=== PATIENT | male | born 1960 | race Caucasian/White ===

== ENCOUNTER → 2019-04-15 09:15 | Outpatient (CLI) | payer OTHER, SELFPAY ==
[2019-04-15 10:33] LABS: Add Manual Diff / Slide Review NO; Basophils Absolute Auto 0 /uL (0-100); Basophils Percent Auto 0.3 % (0-2); Eosinophils Absolute Auto 200 /uL (0-450); Eosinophils Percent Auto 2.5 % (2-4); Hemoglobin 16.1 g/dL (13.5-17.5); Lymphocytes Absolute Auto 1800 /uL (1100-4500); Lymphocytes Percent Auto 27.6 % (25-40); Mean Corpuscular HGB Conc 35.7 % (30-36); Mean Corpuscular Hemoglobin 32.1 PG (26-34); Monocytes Absolute Auto 500 /uL (0-900); Monocytes Percent Auto 7.4 % (3-14); Neutrophils Absolute Auto 4000 /uL (1500-7000); Neutrophils Percent Auto 62.2 % (50-75); Platelet Count 142 X10^3/uL (150-400); Red Cell Distribution Width 12.9 % (11.6-14.8); White Blood Cell Count 6.5 X10^3/uL (4.5-11.0)
[2019-04-15 10:37] LABS: Cholesterol 145 mg/dL (140-199)
[2019-04-15 11:57] LABS: Vitamin D 25 Hydroxy (D3) 37.4 ng/mL (30.0-100.0)
== END ==
PROVIDERS: PCP Family Medicine; Visit Provider Family Medicine
DX: Z12.5 Encounter for screening for malignant neoplasm of prostate (principal); I10 Essential (primary) hypertension; Z13.220 Encounter for screening for lipoid disorders; Z86.010 Personal history of colon polyps
CPT/HCPCS: 36415; 82306; 82465; 84153; 85025; 85027

== ENCOUNTER → 2020-04-29 08:29 | Outpatient (CLI) | payer OTHER, SELFPAY ==
[2020-04-29 09:52] LABS: Add Manual Diff / Slide Review NO; Basophils Absolute Auto 0 /uL (0-100); Basophils Percent Auto 0.3 % (0-2); Eosinophils Absolute Auto 100 /uL (0-450); Eosinophils Percent Auto 1.7 % (2-4); Hematocrit 44.4 % (41-53); Hemoglobin 15.4 g/dL (13.5-17.5); Lymphocytes Absolute Auto 1700 /uL (1100-4500); Lymphocytes Percent Auto 29.4 % (25-40); Mean Corpuscular HGB Conc 34.6 % (30-36); Mean Corpuscular Hemoglobin 31.5 PG (26-34); Monocytes Absolute Auto 500 /uL (0-900); Monocytes Percent Auto 8.5 % (3-14); Neutrophils Absolute Auto 3500 /uL (1500-7000); Neutrophils Percent Auto 60.1 % (50-75); Platelet Count 150 X10^3/uL (150-400); Red Blood Cell Count 4.88 X10^6/uL (4.5-5.9); Red Cell Distribution Width 13.3 % (11.6-14.8); White Blood Cell Count 5.9 X10^3/uL (4.5-11.0)
[2020-04-29 10:17] LABS: Blood Urea Nitrogen 20 mg/dL (9-20); Calcium 9.5 mg/dL (8.4-10.2); Carbon Dioxide 31 mmol/L (22-32); Chloride 104 mmol/L (98-107); Cholesterol 164 mg/dL (140-199); Estimated Glomerular Filt Rate 58.7 mL/min (>60); Glucose 95 mg/dL (80-110); HDL Cholesterol 37 mg/dL (40-60); HEMOLYSIS < 15 (0-50); LDL Cholesterol Calculated 69 mg/dL (<100); Sodium 138 mmol/L (137-145); Triglycerides 290 mg/dL (35-150)
== END ==
PROVIDERS: PCP Family Medicine; Referring Provider Family Medicine; Visit Provider Family Medicine
DX: E78.5 Hyperlipidemia, unspecified (principal); I10 Essential (primary) hypertension
CPT/HCPCS: 36415; 80048; 80061; 85025

== ENCOUNTER → 2020-07-27 07:49 | Outpatient (CLI) | payer OTHER, SELFPAY ==
[2020-07-27 09:41] LABS: Alanine Aminotransferase 44 IU/L (<50); Albumin 4.4 g/dL (3.5-5.0); Albumin Globulin Ratio 1.8 (1.0-2.8); Alkaline Phosphatase 53 U/L (38-126); Aspartate Aminotransferase 33 IU/L (17-59); BUN Creatinine Ratio 21.4 (6-22); Bilirubin Total 0.6 mg/dL (0.2-1.3); Blood Urea Nitrogen 25 mg/dL (9-20); Calcium 9.4 mg/dL (8.4-10.2); Carbon Dioxide 26 mmol/L (22-32); Chloride 106 mmol/L (98-107); Cholesterol 153 mg/dL (140-199); Estimated Glomerular Filt Rate > 60.0 mL/min (>60); Globulin 2.4 g/dL (1.7-4.1); Glucose 97 mg/dL (80-110); HDL Cholesterol 40 mg/dL (40-60); HEMOLYSIS < 15 (0-50); LDL Cholesterol Calculated 71 mg/dL (<100); Potassium 3.8 mmol/L (3.4-5.1); Sodium 140 mmol/L (137-145); Total Protein 6.8 g/dL (6.3-8.2); Triglycerides 208 mg/dL (35-150)
== END ==
PROVIDERS: PCP Family Medicine; Referring Provider Family Medicine; Visit Provider Family Medicine
DX: I10 Essential (primary) hypertension (principal); Z13.220 Encounter for screening for lipoid disorders
CPT/HCPCS: 36415; 80053; 80061

== ENCOUNTER → 2021-01-28 07:09 | Outpatient (CLI) | payer OTHER, SELFPAY ==
[2021-01-28 08:13] LABS: Add Manual Diff / Slide Review NO; Basophils Absolute Auto 0 /uL (0-100); Basophils Percent Auto 0.4 % (0-2); Eosinophils Absolute Auto 200 /uL (0-450); Eosinophils Percent Auto 3.9 % (2-4); Hematocrit 43.7 % (41-53); Lymphocytes Absolute Auto 1400 /uL (1100-4500); Lymphocytes Percent Auto 26.9 % (25-40); Mean Corpuscular HGB Conc 34.4 % (30-36); Mean Corpuscular Hemoglobin 31.2 PG (26-34); Mean Corpuscular Volume 90.8 fL (80-100); Monocytes Absolute Auto 400 /uL (0-900); Monocytes Percent Auto 7.5 % (3-14); Neutrophils Absolute Auto 3200 /uL (1500-7000); Neutrophils Percent Auto 61.3 % (50-75); Platelet Count 120 X10^3/uL (150-400); Red Blood Cell Count 4.82 X10^6/uL (4.5-5.9); Red Cell Distribution Width 12.8 % (11.6-14.8); White Blood Cell Count 5.3 X10^3/uL (4.5-11.0)
[2021-01-28 08:31] LABS: Alanine Aminotransferase 31 IU/L (<50); Albumin 4.1 g/dL (3.5-5.0); Albumin Globulin Ratio 1.6 (1.0-2.8); Alkaline Phosphatase 49 U/L (38-126); Aspartate Aminotransferase 32 IU/L (17-59); BUN Creatinine Ratio 17.4 (6-22); Bilirubin Total 0.5 mg/dL (0.2-1.3); Blood Urea Nitrogen 21 mg/dL (9-20); Calcium 9.4 mg/dL (8.4-10.2); Carbon Dioxide 30 mmol/L (22-32); Chloride 106 mmol/L (98-107); Cholesterol 154 mg/dL (140-199); Estimated Glomerular Filt Rate > 60.0 mL/min (>60); Globulin 2.5 g/dL (1.7-4.1); Glucose 94 mg/dL (80-110); HDL Cholesterol 39 mg/dL (40-60); HEMOLYSIS < 15 (0-50); LDL Cholesterol Calculated 63 mg/dL (<100); Potassium 4.1 mmol/L (3.4-5.1); Sodium 141 mmol/L (137-145); Total Protein 6.6 g/dL (6.3-8.2); Triglycerides 261 mg/dL (35-150)
[2021-01-28 08:54] LABS: Prostate Specific Antigen Scrn 1.32 ng/mL (0.1-4.0)
== END ==
PROVIDERS: PCP Family Medicine; Referring Provider Family Medicine; Visit Provider Family Medicine
DX: E78.1 Pure hyperglyceridemia (principal); I10 Essential (primary) hypertension; N18.31 Chronic kidney disease, stage 3a; Z12.5 Encounter for screening for malignant neoplasm of prostate; Z13.220 Encounter for screening for lipoid disorders
CPT/HCPCS: 36415; 80053; 80061; 85025; G0103

== ENCOUNTER → 2021-04-08 06:45 | Outpatient (CLI) | payer OTHER, SELFPAY ==
[2021-04-08 08:08] LABS: Cholesterol 172 mg/dL (140-199); HDL Cholesterol 43 mg/dL (40-60); LDL Cholesterol Calculated 96 mg/dL (<100); Triglycerides 163 mg/dL (35-150)
== END ==
PROVIDERS: PCP Family Medicine; Referring Provider Family Medicine; Visit Provider Family Medicine
DX: E78.1 Pure hyperglyceridemia (principal)
CPT/HCPCS: 36415; 80061

== ENCOUNTER 2023-11-22 14:24 | Inpatient (IN) | payer OTHER, SELFPAY ==
[2023-11-22] VITALS (80 sets, daily range): BP systolic 97–140; BP diastolic 62–91; PULSE 67–152; RESP 10–36; TEMP 36.9; O2SAT 91–100; BMI 27.2
--- NOTE | 2023-11-22 | DI.ECHO.S_ITS ---
[facility] : : [address] : : [place] : : [id number] : : Phone: [phone] Echocardiogram Report + + :Name: BOWEN HOBSON Study Date: 11/23/2023 Height: 70 in : :[facility] ReadingLocation: Weight: 190 lb : : Gender: Male BSA: 2.0 m2 : :: 1960 Age: 63 yrs BP: 145/88 mmHg: :Reason For Study: NEW ONSET ATRIAL FIBRILLATION : :Ordering Physician: MATHIEU, : :WILLY Performed By: Sheyla Pruett : :Referring: WILLY MURDOCK : + + Interpretation Summary The ejection fraction is estimated to be 60-65%. Diastolic parameters suggest probable normal left ventricular diastolic function and normal filling pressures. The right ventricle is normal in size and function. Pulmonary artery pressures cannot be estimated because of the lack of a measurable TR jet velocity. The IVC is of normal diameter and collapses greater than 50% with a sniff. This suggests a low right atrial pressure of 3 mm Hg. No significant valvular abnormality. Procedure: A two-dimensional transthoracic echocardiogram with color flow and Doppler was performed. The study quality was technically adequate. Comparison is made with the echocardiogram of 09/06/2010. The patient was in sinus rhythm with heart rates between 73-78 bpm during the exam. Left Ventricle: The left ventricle is normal in size and wall thickness. The ejection fraction is estimated to be 60-65%. Left ventricular wall motion is normal. Diastolic parameters suggest probable normal left ventricular diastolic function and normal filling pressures. Right Ventricle: The right ventricle is normal in size and function. Atria: The left atrial size is normal. Right atrial size is normal. There is no Doppler evidence for an interatrial shunt. Mitral Valve: The mitral valve is normal in structure and function. There is trace mitral regurgitation. Aortic Valve: The aortic valve is trileaflet. The aortic valve opens well. There is no aortic valve stenosis. No aortic regurgitation is present. Tricuspid Valve: The tricuspid valve is normal in structure and function. There is trace tricuspid regurgitation. Pulmonary artery pressures cannot be estimated because of the lack of a measurable TR jet velocity. Pulmonic Valve: The pulmonic valve leaflets are thin and pliable; valve motion is normal. There is trace pulmonic regurgitation. Great Vessels: The aortic root is normal size. The dimensions of the ascending aorta are normal. The IVC is of normal diameter and collapses greater than 50% with a sniff. This suggests a low right atrial pressure of 3 mm Hg. Pericardium/ Pleura There is no pericardial effusion. There is no pleural effusion. MMode/2D Measurements & Calculations LVIDd: 4.5 cm LVOT diam: 2.1 cm LVIDs: 2.8 cm Ao root diam: 3.3 cm FS: 38.0 % asc Aorta Diam: 3.6 cm IVSd: 0.87 cm Ao Arch Diam (Prox Trans): 3.0 cm LVPWd: 0.71 cm LV naidu. diameter/BSA (cm/m^2): 2.2 LV sys. diameter/BSA (cm/m^2): 1.4 LA A2 area: 15.1 cm2 RA long axis: 4.9 cm LA A4 area: 11.5 cm2 RA area: 11.9 cm2 LA length (vol): 5.0 cm RA vol: 24.5 ml LA vol: 29.4 ml RA : 12.0 ml/m2 LA vol index: 14.4 ml/m2 IVC diam: 1.7 cm RVD1 (basal): 3.4 cm TAPSE: 2.3 cm Doppler Measurements & Calculations Ao V2 max: 151.5 cm/sec LVOT Max Cisco: 108.4 cm/sec Ao V2 mean: 104.7 cm/sec LV V1 max P.7 mmHg Ao max P.2 mmHg LV V1 VTI: 21.1 cm Ao mean P.9 mmHg ANNALISA(I,D): 2.6 cm2 Ao V2 VTI: 29.3 cm ANNALISA(V,D): 2.6 cm2 sev ratio: 0.72 ANNALISA indexed to BSA (cm^2/m^2): 1.3 MV E max cisco: 58.2 cm/sec PA V2 max: 128.1 cm/sec MV A max cisco: 60.2 cm/sec PA V2 mean: 81.7 cm/sec MV E/A: 0.97 PA mean P.0 mmHg Med Peak E' Cisco: 7.6 cm/sec PA pr(Accel): 51.6 mmHg E/E' med: 7.7 Lat Peak E' Cisco: 10.0 cm/sec E/E' lat: 5.8 E/e' average: 6.8 MV dec time: 0.19 sec SV(LVOT): 76.3 ml Reading Physician:PM
--- NOTE | 2023-11-22 14:34 | EKG_ITS ---
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
--- NOTE | 2023-11-22 14:34 | DI.RAD.S_ITS ---
PROCEDURE: XR CHEST 1V INDICATIONS: chest pain TECHNIQUE: One view of the chest was acquired. COMPARISON: None. FINDINGS: Surgical changes and devices: None. Lungs and pleura: Lungs are clear. No pleural effusions or pneumothorax. Mediastinum: Mediastinal contours appear normal. Heart size is normal. Bones and chest wall: No suspicious bony lesions. Overlying soft tissues appear unremarkable. IMPRESSION: No acute pulmonary process. Dictated by: Yvette Fay M.D. on 11/22/2023 at 16:18 Approved by: Yvette Fay M.D. on 11/22/2023 at 16:18
--- NOTE | 2023-11-22 14:38 | EKG_ITS ---
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
[2023-11-22 14:48] LABS: INR 0.9 (0.9-1.3); Prothrombin Time 10.8 SECONDS (9.4-12.5)
[2023-11-22 14:50] LABS: PTT Partial Thromboplastin Tim 29 SECONDS (25.1-36.5)
[2023-11-22 14:53] LABS: Add Manual Diff / Slide Review NO; Alanine Aminotransferase 23 IU/L (<50); Albumin 4.4 g/dL (3.5-5.0); Albumin Globulin Ratio 1.6 (1.0-2.8); Alkaline Phosphatase 24 U/L (38-126); Aspartate Aminotransferase 47 IU/L (17-59); BUN Creatinine Ratio 20.9 (6-22); Basophils Absolute Auto 0 /uL (0-100); Basophils Percent Auto 0.1 % (0-2); Blood Urea Nitrogen 29 mg/dL (9-20); Calcium 8.5 mg/dL (8.4-10.2); Carbon Dioxide 17 mmol/L (22-32); Chloride 113 mmol/L (98-107); Creatine Kinase 169 U/L (55-170); Eosinophils Absolute Auto 0 /uL (0-450); Eosinophils Percent Auto 0.3 % (2-4); Estimated Glomerular Filt Rate 56 mL/min (>60); Globulin 2.7 g/dL (1.7-4.1); Glucose 142 mg/dL (80-110); Hematocrit 39.6 % (41-53); Hemoglobin 13.3 g/dL (13.5-17.5); Lipase 115 U/L (23-300); Lymphocytes Absolute Auto 700 /uL (1100-4500); Lymphocytes Percent Auto 6.9 % (25-40); Magnesium 1.9 mg/dL (1.6-2.3); Mean Corpuscular HGB Conc 33.6 % (30-36); Mean Corpuscular Hemoglobin 31.6 PG (26-34); Mean Corpuscular Volume 93.9 fL (80-100); Monocytes Absolute Auto 400 /uL (0-900); Neutrophils Absolute Auto 9100 /uL (1500-7000); Neutrophils Percent Auto 88.7 % (50-75); Platelet Count 116 X10^3/uL (150-400); Red Blood Cell Count 4.21 X10^6/uL (4.5-5.9); Red Cell Distribution Width 13.2 % (11.6-14.8); Sodium 139 mmol/L (137-145); Total Protein 7.1 g/dL (6.3-8.2); White Blood Cell Count 10.3 X10^3/uL (4.5-11.0)
[2023-11-22 14:59] LABS: HEMOLYSIS 177 (0-50); Potassium 5.4 mmol/L (3.4-5.1)
[2023-11-22 15:04] LABS: NT-proBNP (BNP-Adult 18+) 38 pg/mL (<125); Troponin I 0.016 ng/mL (0.01-0.034)
--- NOTE | 2023-11-22 15:27 | ED.ARRPALP ---
HPI - Arrhythmia/Palpitations General Chief Complaint: Arrhythmia/Palpitations Stated Complaint: vertigo/AFIB RVR Time Seen by Provider: 11/22/23 15:10 Source: patient and EMS Mode of arrival: EMS History of Present Illness HPI narrative: Patient 63-year-old male without history of atrial fibrillation presenting today with dizziness. He reports an episode of dizziness yesterday he would another episode today he was trying to get up and go to the office and got very dizzy. He denies all chest pain or palpitations no shortness breath. He got promethazine with EMS in his very sleepy. He has no numbness tingling or weakness. He denies any sort of fever or chills. No prior history of CVA. Related Data Home Medications Medication Instructions Recorded Confirmed aspirin 325 mg tablet 325 mg PO DAILY 04/13/19 01/29/21 omega 3 fish oil 1 ea PO DAILY 06/11/20 01/29/21 Previous Rx's Medication Instructions Recorded tadalafil 20 mg tablet See Rx Instructions .Route 04/25/20 .COMPLEX #18 tabs minocycline 50 mg tablet 50 mg PO DAILY #90 tabs 07/23/20 sulfasalazine 500 mg tablet See Rx Instructions .Route 12/18/20 .COMPLEX #360 tabs fenofibrate 40 mg tablet See Rx Instructions .Route 07/28/21 .COMPLEX #90 tabs rosuvastatin 10 mg tablet See Rx Instructions .Route 10/17/21 .COMPLEX #90 tabs mesalamine 1.2 gram tablet,delayed See Rx Instructions .Route 01/26/22 release .COMPLEX #180 tabs triamterene 37.5 See Rx Instructions .Route 02/27/22 mg-hydrochlorothiazide 25 mg tablet .COMPLEX #90 tabs Allergies Allergy/AdvReac Type Severity Reaction Status Date / Time No Known Drug Allergies Allergy Unverified 01/29/21 08:02 Patient History Medical History Hypertriglyceridemia without hypercholesterolemia Chronic kidney disease, stage 3a Chronic colitis Ear foreign body Vision disorder Rosacea (~2007) Chicken pox Tinnitus (~1999) History of recurrent ear infection Skin cancer (~2002) Erectile dysfunction History of colon polyps HTN (hypertension) (~2000) History of atrial fibrillation (~2009) Surgical History History of skin surgery Family History Father Diabetes mellitus Stroke History of heart disease Hypertension Mother History of heart disease Brother Mental health problem Brother Suicide Mental health problem Sister History of heart disease Sister Multiple sclerosis Sister History of heart disease Social History Smoking Status: Never smoker Smoking Status: Never smoker alcohol intake frequency: holidays/special occasions only Substance Use Type: does not use Exam Initial Vital Signs Initial Vital Signs: Vital Signs Pulse Rate 142 H 11/22/23 14:31 Respiratory Rate 14 11/22/23 14:31 Blood Pressure 139/91 H 11/22/23 14:31 Pulse Oximetry 100 11/22/23 14:31 Oxygen Delivery Method Room Air 11/22/23 14:31 GENERAL: Alert pleasant 63-year-old male sleepy but able to participate and in no acute distress. HEENT: Head atraumatic,EOMI, pupils reactive, face symmetric, moist mucous membranes CARDIOVASCULAR: Irregularly irregular RESPIRATORY: Breath sounds equal bilaterally, no wheezes rales or rhonchi. ABDOMEN: Soft, nontender. Normoactive bowel sounds all 4 quadrants. No guarding or rebound. EXTREMITIES: Normal range of motion, no clubbing or edema. Neurovascularly intact NEUROLOGICAL: Alert and oriented x4.Normal gait and speech. Cranial nerves II through XII grossly intact. SKIN: Warm, dry, no laceration, no petechiae, no rashes or lesions. Course Orders Ordered: ED Orders 11/22/23 14:34 XR chest 1V Stat BNP [NT-proBNP (BNP-Adult 18+)] Stat Complete Blood Count AUTO DIFF Stat Comprehensive Metabolic Panel Stat Lactate (Lactic Acid) Stat Lipase Stat Magnesium Stat NT-proBNP (BNP-Adult 18+) Stat PTT Partial Thromboplastin Micha Stat Prothrombin Time INR Stat Troponin & CK Cardiac Panel Stat EKG-12 Lead Stat 11/22/23 14:38 EKG-12 Lead Routine 11/22/23 15:45 CT angio head and neck Stat Acetaminophen (Acetaminophen 325 Mg Tablet) 650 mg PO Q6H PRN PRN Reason: Fever/Mild Pain (1-3) Albuterol (Albuterol 2.5 Mg/3 Ml Neb (Adult)) 2.5 mg INH [id number] PRN PRN Reason: Dyspnea Hydralazine HCl (Hydralazine 20 Mg/Ml Vial) 10 mg IV Q6HR PRN PRN Reason: SBP>= 160 or DBP >=110 DILTIAZEM (Diltiazem 125 Mg/125 Ml-D5w) 125 mg in 125 mls @ 5 mls/hr IV TITRATE TAMANNA; Protocol Last Titration: 11/22/23 20:01 Dose: 10 mg/hr, 10 mls/hr Documented By: Titration: 11/22/23 19:56 Dose: 7.5 mg/hr, 7.5 mls/hr Documented By: Admin: 11/22/23 19:33 Dose: 5 mg/hr, 5 mls/hr Documented By: AB Sodium Chloride (Normal Saline 0.9%) 1,000 mls @ 100 mls/hr IV CONT TAMANNA Melatonin (Melatonin 3 Mg Tablet) 9 mg PO BEDTIME PRN PRN Reason: insomnia Naloxone HCl (Naloxone 0.4 Mg/Ml Vial) 0.2 mg IV Q2MIN PRN PRN Reason: Opiate Reversal Non-Formulary Medication (Aspirin) 81 mg PO DAILY TAMANNA Non-Formulary Medication (Fenofibrate) 0 mg .ROUTE .COMPLEX TAMANNA Non-Formulary Medication (Mesalamine) 0 mg .ROUTE .COMPLEX TAMANNA Non-Formulary Medication (Rosuvastatin) 0 mg .ROUTE .COMPLEX TAMANNA Non-Formulary Medication (Sulfasalazine) 0 mg .ROUTE .COMPLEX TAMANNA Triamterene/Hydrochlorothiazide (Triamterene/Hctz 37.5/25 Capsule) 0 cap PO .COMPLEX TAMANNA Discontinued Medications Apixaban (Apixaban 5 Mg Tablet) 5 mg PO NOW ONE Stop: 11/22/23 17:59 Last Admin: 11/22/23 18:08 Dose: 5 mg Documented By: RB Digoxin (Digoxin 500 Mcg/2 Ml Ampul) 500 mcg IV NOW ONE Stop: 11/22/23 19:36 Last Admin: 11/22/23 19:52 Dose: 500 mcg Documented By: AB Diltiazem HCl (Diltiazem 25 Mg/5 Ml Sdv) 10 mg IV NOW ONE Stop: 11/22/23 15:46 Last Admin: 11/22/23 15:55 Dose: 10 mg Documented By: RB Diltiazem HCl (Diltiazem 25 Mg/5 Ml Sdv) 20 mg IV NOW ONE Stop: 11/22/23 16:54 Last Admin: 11/22/23 17:19 Dose: 20 mg Documented By: RB Sodium Chloride (Normal Saline 0.9%) 1,000 mls @ 1,000 mls/hr IV BOLUS ONE Stop: 11/22/23 16:44 Last Infusion: 11/22/23 17:15 Dose: Infused Documented By: Admin: 11/22/23 15:54 Dose: 1,000 mls/hr Documented By: RB Metoprolol Succinate (Metoprolol Er 25 Mg Tablet) 25 mg PO NOW ONE Stop: 11/22/23 17:59 Last Admin: 11/22/23 18:08 Dose: 25 mg Documented By: RB Vital Signs Vital signs: Vital Signs - 8 hr 11/22/23 14:31 11/22/23 14:51 11/22/23 14:55 Pulse Rate 142 H 122 H Respiratory Rate 14 10 L Blood Pressure 139/91 H 130/68 Pulse Oximetry 100 98 Oxygen Delivery Method Room Air 11/22/23 14:55 11/22/23 15:00 11/22/23 15:00 Pulse Rate 148 H 143 H Respiratory Rate 15 15 Blood Pressure 97/67 Pulse Oximetry 98 99 Oxygen Delivery Method 11/22/23 15:14 11/22/23 15:14 11/22/23 15:15 Pulse Rate 150 H Respiratory Rate 15 Blood Pressure 106/84 120/73 Pulse Oximetry 98 Oxygen Delivery Method 11/22/23 15:15 11/22/23 15:30 11/22/23 15:30 Pulse Rate 134 H 147 H Respiratory Rate 14 15 Blood Pressure 115/63 Pulse Oximetry 98 98 Oxygen Delivery Method 11/22/23 15:45 11/22/23 15:45 11/22/23 15:55 Pulse Rate 152 H 140 H Respiratory Rate 16 Blood Pressure 130/70 130/70 Pulse Oximetry 98 Oxygen Delivery Method 11/22/23 16:00 11/22/23 16:00 11/22/23 16:30 Pulse Rate 99 H 123 H Respiratory Rate 15 14 Blood Pressure 108/66 Pulse Oximetry 98 97 Oxygen Delivery Method 11/22/23 17:00 11/22/23 17:19 11/22/23 17:30 Pulse Rate 135 H 146 H 115 H Respiratory Rate 13 20 Blood Pressure 108/66 Pulse Oximetry 97 97 Oxygen Delivery Method 11/22/23 17:57 11/22/23 17:57 11/22/23 18:00 Pulse Rate 135 H Respiratory Rate 17 Blood Pressure 133/73 126/77 Pulse Oximetry 93 Oxygen Delivery Method 11/22/23 18:00 11/22/23 18:08 11/22/23 18:15 Pulse Rate 130 H 130 H Respiratory Rate 12 Blood Pressure 126/77 128/69 Pulse Oximetry 95 Oxygen Delivery Method 11/22/23 18:15 11/22/23 18:30 11/22/23 18:31 Pulse Rate 112 H 148 H Respiratory Rate 15 15 Blood Pressure 125/79 Pulse Oximetry 95 95 Oxygen Delivery Method 11/22/23 18:31 11/22/23 18:45 11/22/23 18:45 Pulse Rate 105 H 121 H Respiratory Rate 15 17 Blood Pressure 121/72 Pulse Oximetry 95 94 Oxygen Delivery Method 11/22/23 18:59 11/22/23 19:00 11/22/23 19:00 Pulse Rate 127 H 124 H Respiratory Rate 16 16 Blood Pressure 124/62 Pulse Oximetry 95 95 Oxygen Delivery Method 11/22/23 19:11 11/22/23 19:15 11/22/23 19:15 Pulse Rate 117 H 148 H Respiratory Rate 16 Blood Pressure 124/62 117/70 Pulse Oximetry 94 Oxygen Delivery Method 11/22/23 19:30 11/22/23 19:35 11/22/23 19:40 Pulse Rate 131 H 136 H 135 H Respiratory Rate 19 19 12 Blood Pressure Pulse Oximetry 96 96 96 Oxygen Delivery Method MDM - Arrhythmia/Palpitations Lab Data 11/22/23 14:34 11/22/23 14:34 Labs: Lab Results 11/22/23 11/22/23 Range/Units 14:34 14:34 WBC 10.3 (4.5-11.0) X10^3/uL RBC 4.21 L (4.5-5.9) X10^6/uL Hgb 13.3 L (13.5-17.5) g/dL Hct 39.6 L (41-53) % MCV 93.9 (80-100) fL MCH 31.6 (26-34) PG MCHC 33.6 (30-36) % RDW 13.2 (11.6-14.8) % Plt Count 116 L (150-400) X10^3/uL Neut % (Auto) 88.7 H (50-75) % Lymph % (Auto) 6.9 L (25-40) % [place] % (Auto) 4.0 (3-14) % Eos % (Auto) 0.3 L (2-4) % Baso % (Auto) 0.1 (0-2) % Neut # (Auto) 9100 H (7132-2771) /uL Lymph # (Auto) 700 L (4970-6422) /uL [place] # (Auto) 400 (0-900) /uL Eos # (Auto) 0 (0-450) /uL Baso # (Auto) 0 (0-100) /uL PT 10.8 (9.4-12.5) SECONDS INR 0.9 (0.9-1.3) APTT 29 (25.1-36.5) SECONDS Sodium 139 (137-145) mmol/L Potassium 5.4 H (3.4-5.1) mmol/L Chloride 113 H (98-107) mmol/L Carbon Dioxide 17 L (22-32) mmol/L BUN 29 H (9-20) mg/dL Creatinine 1.39 H (0.66-1.25) mg/dL Estimated GFR 56 L (>60) mL/min BUN/Creatinine Ratio 20.9 (6-22) Glucose 142 H (80-110) mg/dL Lactate 2.0 (0.7-2.1) mmol/L Calcium 8.5 (8.4-10.2) mg/dL Magnesium 1.9 (1.6-2.3) mg/dL Total Bilirubin 1.0 (0.2-1.3) mg/dL AST 47 (17-59) IU/L ALT 23 (<50) IU/L Alkaline Phosphatase 24 L (38-126) U/L Total Creatine Kinase 169 (55-170) U/L Troponin I 0.016 (0.01-0.034) ng/mL NT-Pro-B Natriuret Pep 38 37 (<125) pg/mL Total Protein 7.1 (6.3-8.2) g/dL Albumin 4.4 (3.5-5.0) g/dL Globulin 2.7 (1.7-4.1) g/dL Albumin/Globulin Ratio 1.6 (1.0-2.8) Lipase 115 (23-300) U/L Imaging Data Chest x-ray: Radiologist's Impresson: PROCEDURE: XR CHEST 1V INDICATIONS: chest pain TECHNIQUE: One view of the chest was acquired. COMPARISON: None. FINDINGS: Surgical changes and devices: None. Lungs and pleura: Lungs are clear. No pleural effusions or pneumothorax. Mediastinum: Mediastinal contours appear normal. Heart size is normal. Bones and chest wall: No suspicious bony lesions. Overlying soft tissues appear unremarkable. IMPRESSION: No acute pulmonary process. Dictated by: Yvette Fay M.D. on 11/22/2023 at 16:18 CTA - brain/neck: Radiologist's Impresson: PROCEDURE: CT ANGIO HEAD AND NECK INDICATIONS: dizzy new onset afib TECHNIQUE: After the administration of intravenous contrast, 1 mm thick sections acquired from the aortic arch through the [place]. 3-dimensional [id number]-ciujchlggv (MIP) and/or volume rendering reformats were acquired of the central intracranial vasculature and neck separately. For radiation dose reduction, the following was used: automated exposure control, adjustment of mA and/or kV according to patient size. COMPARISON: [facility], , XR CHEST 1V, 11/22/2023, 14:35. FINDINGS: Image quality: This examination is limited by involuntary motion artifact. Limited by bolus timing, with venous contamination. BRAIN: CSF spaces: Ventricles are normal in size and shape. Basal cisterns are patent. No extra-axial fluid collections. Brain: No significant abnormality of the brain can be seen. Skull and face: Calvarium and facial bones appear intact, without suspicious lesions. Orbits appear normal. Sinuses: Sinuses and mastoids are clear. HEAD CT ANGIOGRAPHY: Anterior circulation: Intracranial internal carotid arteries are normal in size and flow. The flow within the paired anterior cerebral arteries is normal and symmetric. The flow within the middle cerebral arteries is normal and symmetric. The anterior communicating artery is seen. No aneurysms are seen. Posterior circulation: Visualized portions of the vertebral arteries demonstrate normal caliber, and join to form a normal appearing basilar artery. Flow within the posterior cerebral arteries is normal and symmetric. No aneurysms are seen. NECK CT ANGIOGRAPHY: Carotid system: The great vessels demonstrate a conventional anatomy as they arise from the aortic arch. The origins of the common carotid arteries appear patent. The common carotid arteries demonstrate normal caliber and courses. The bifurcation regions are both widely patent. The internal carotid arteries demonstrate normal calibers and courses. Posterior circulation: The origins of the vertebral arteries both appear widely patent. The more superior extracranial portions of both vertebral arteries also demonstrate normal courses and calibers. They join to form a normal appearing basilar artery. Soft tissues: Visualized neck soft tissues demonstrate no suspicious abnormalities. Bones: No suspicious bony lesions. Visualized cervical spine appears normally aligned. Moderate cervical spine degenerative change can be seen. IMPRESSION: No significant intracranial arterial abnormality is seen. No significant abnormality is seen within the arteries of the neck. If there is strong clinical suspicion for an acute stroke, please consider a brain MRI for further evaluation, as it is more sensitive (assuming that there is no contraindication to MRI). Any quantitative measurements of stenosis were performed using NASCET criteria. Dictated by: Jett Flower M.D. on 11/22/2023 at 15:52 ECG Data Attestation: I personally reviewed and interpreted this ECG as follows: Prior ECG tracings: available for review Interpretation: Atrial fibrillation rate [address] changes Repeat EKG AFib rate 135 MDM Narrative Medical decision making narrative: Patient is 63-year-old male with remote history of AFib I actually looked back through his EKGs in 2010 he did have an episode of atrial fibrillation. But he never followed up with Cardiology stating he has never had any issue. He suddenly presents with some dizziness that started today. No neurologic deficits. He was given promethazine by EMS which made him extremely sleepy. He is noted to be in AFib with RVR he was given 2 doses of diltiazem and did slow him down a little bit but then his heart rate quickly increased again. He has a CHADS-VASc 2 score=2 I am not convinced that he is symptomatic from his atrial fibrillation. While in the ED does sleepy on promethazine he reports no symptoms. He has not dizzy lightheaded he has absolutely no chest pain or palpitations. Heart rate remains to be in the 150s. I do not believe him to be a candidate for cardioversion. Other concern is possible CVA with asymptomatic uncontrolled atrial fibrillation. However no new neurologic deficits he has no longer having vertigo. CT angio was done there is no evidence of large vessel occlusion. Blood work has been reviewed no anemia or leukocytosis platelets are 116 they were previously 120, sodium 139, potassium 5.4, chloride 113, bicarb 17 BUN 29, creatinine 1.39 glucose 142 lactate 2.0, bili 1.0, AST 47, ALT 23, alk-phos 24, CPK 169 troponin negative Imaging reviewed CT angio and chest x-ray no acute cardiopulmonary process Consults: 1930 Dr Tee, updated on patient's symptoms test results recommends talking to Cardiology Dr. Nava, on-call cardiology updated patient's symptoms test results agrees with not a candidate for cardioversion with remote history of atrial fibrillation probably been asymptomatic and has episodes. Recommends rate control and anticoagulation. Diltiazem so can do digoxin 0.5 mg IV. Patient is waking up he is hungry overall feeling a little bit better he continues to be in AFib with RVR heart rate is very variable. Diltiazem drip is started. Patient accepted upstairs Discharge Plan Departure Patient Disposition: Admitted As Inpatient Clinical Impression: Atrial fibrillation, new onset, Atrial fibrillation with rapid ventricular response Admit Date/Time: 11/22/23 19:40 Admit Provider: Darnell Tee
--- NOTE | 2023-11-22 15:45 | DI.CT.S_ITS ---
PROCEDURE: CT ANGIO HEAD AND NECK INDICATIONS: dizzy new onset afib TECHNIQUE: After the administration of intravenous contrast, 1 mm thick sections acquired from the aortic arch through the [place]. 3-dimensional [id number] (MIP) and/or volume rendering reformats were acquired of the central intracranial vasculature and neck separately. For radiation dose reduction, the following was used: automated exposure control, adjustment of mA and/or kV according to patient size. COMPARISON: [facility], CR, XR CHEST 1V, 11/22/2023, 14:35. FINDINGS: Image quality: This examination is limited by involuntary motion artifact. Limited by bolus timing, with venous contamination. BRAIN: CSF spaces: Ventricles are normal in size and shape. Basal cisterns are patent. No extra-axial fluid collections. Brain: No significant abnormality of the brain can be seen. Skull and face: Calvarium and facial bones appear intact, without suspicious lesions. Orbits appear normal. Sinuses: Sinuses and mastoids are clear. HEAD CT ANGIOGRAPHY: Anterior circulation: Intracranial internal carotid arteries are normal in size and flow. The flow within the paired anterior cerebral arteries is normal and symmetric. The flow within the middle cerebral arteries is normal and symmetric. The anterior communicating artery is seen. No aneurysms are seen. Posterior circulation: Visualized portions of the vertebral arteries demonstrate normal caliber, and join to form a normal appearing basilar artery. Flow within the posterior cerebral arteries is normal and symmetric. No aneurysms are seen. NECK CT ANGIOGRAPHY: Carotid system: The great vessels demonstrate a conventional anatomy as they arise from the aortic arch. The origins of the common carotid arteries appear patent. The common carotid arteries demonstrate normal caliber and courses. The bifurcation regions are both widely patent. The internal carotid arteries demonstrate normal calibers and courses. Posterior circulation: The origins of the vertebral arteries both appear widely patent. The more superior extracranial portions of both vertebral arteries also demonstrate normal courses and calibers. They join to form a normal appearing basilar artery. Soft tissues: Visualized neck soft tissues demonstrate no suspicious abnormalities. Bones: No suspicious bony lesions. Visualized cervical spine appears normally aligned. Moderate cervical spine degenerative change can be seen. IMPRESSION: No significant intracranial arterial abnormality is seen. No significant abnormality is seen within the arteries of the neck. If there is strong clinical suspicion for an acute stroke, please consider a brain MRI for further evaluation, as it is more sensitive (assuming that there is no contraindication to MRI). Any quantitative measurements of stenosis were performed using NASCET criteria. Dictated by: Jett Flower M.D. on 11/22/2023 at 15:52 Approved by: Jett Flower M.D. on 11/22/2023 at 15:54
[2023-11-22] MEDS: SODIUM CHLORIDE 0.9% 1,000 ML 1000 ML IV (15:54)
[2023-11-22] MEDS: dilTIAZem 25 MG/5 ML SDV 10 MG IV (15:55)
[2023-11-22 16:35] LABS: NT-proBNP (BNP-Adult 18+) 37 pg/mL (<125)
[2023-11-22] MEDS: dilTIAZem 25 MG/5 ML SDV 20 MG IV (17:19)
[2023-11-22] MEDS: APIXABAN 5 MG TABLET PO (18:08)
[2023-11-22] MEDS: METOPROLOL ER 25 MG TABLET PO (18:08)
[2023-11-22] MEDS: DILTIAZEM 125 MG/125 ML PIGGYBACK IV (19:33)
[2023-11-22] MEDS: DIGOXIN 500 MCG/2 ML AMPUL IV (19:52)
[2023-11-22] MEDS: ATORVASTATIN 20 MG TABLET PO (22:12)
[2023-11-22] MEDS: TRIAMTERENE/HCTZ 37.5/25 CAPSULE PO (22:12)
[2023-11-22] MEDS: SODIUM CHLORIDE 0.9% 1,000 ML 100 ML IV (22:13)
--- NOTE | 2023-11-22 22:20 | P.HP_ITS ---
History of Present Illness History of Present Illness Chief complaint: vertigo Narrative: 63 years old male with history of hypertension, hyperlipidemia, remote history of atrial fibrillation in 2009, CKD, chronic colitis presented to the ER with dizziness since this morning. The patient tried vertigo medication but it did not help him. Denies any chest pain, palpitations, nausea, vomiting, abdominal pain, diarrhea, dysuria, neurodeficits, headache or blurry vision. In the ER laboratory showed BNP 690, potassium 5.4, creatinine 139, glucose 143, LFT normal, lipase 115. EKG showed atrial fibrillation with a rate of 129. CT angiogram of the head was unremarkable. The patient was started on Cardizem drip, Eliquis. Cardiology was consulted and recommended adding digoxin IV. [facility] Medical History Hypertriglyceridemia without hypercholesterolemia Chronic kidney disease, stage 3a Chronic colitis Ear foreign body Vision disorder Rosacea (~2007) Chicken pox Tinnitus (~1999) History of recurrent ear infection Skin cancer (~2002) Erectile dysfunction History of colon polyps HTN (hypertension) (~2000) History of atrial fibrillation (~2009) Surgical History History of skin surgery Family History Father Diabetes mellitus Stroke History of heart disease Hypertension Mother History of heart disease Brother Mental health problem Brother Suicide Mental health problem Sister History of heart disease Sister Multiple sclerosis Sister History of heart disease Social History household members: spouse Smoking Status: Never smoker alcohol intake: current Meds Home Medications and Allergies Home Medications Medication Instructions Recorded Confirmed Type aspirin 325 mg tablet 325 mg PO DAILY 04/13/19 11/22/23 History tadalafil 20 mg tablet See Rx Instructions .Route 04/25/20 11/22/23 Rx .COMPLEX #18 tabs minocycline 50 mg tablet 50 mg PO DAILY #90 tabs 07/23/20 11/22/23 Rx sulfasalazine 500 mg tablet See Rx Instructions .Route 12/18/20 11/22/23 Rx .COMPLEX #360 tabs fenofibrate 40 mg tablet See Rx Instructions .Route 07/28/21 11/22/23 Rx .COMPLEX #90 tabs rosuvastatin 10 mg tablet See Rx Instructions .Route 10/17/21 11/22/23 Rx .COMPLEX #90 tabs lisinopril 20 mg tablet 20 mg PO DAILY 11/22/23 11/22/23 History Allergies Allergy/AdvReac Type Severity Reaction Status Date / Time No Known Drug Allergies Allergy Unverified 01/29/21 08:02 Review of Systems Review of Systems ROS: Yes All systems reviewed with the patient and are negative except as otherwise documented Constitutional Constitutional: Reports as per HPI and Reports system reviewed and no additional complaints, except as documented Eyes Eyes: Reports as per HPI and Reports system reviewed and no additional complaints, except as documented ENT Ears, Nose, Mouth, and Throat: Yes as per HPI and Yes system reviewed and no additional complaints, except as documented Cardiovascular Cardiovascular: Reports system reviewed and no additional complaints, except as documented Respiratory Respiratory: Reports system reviewed and no additional complaints, except as documented Gastrointestinal Gastrointestinal: Reports system reviewed and no additional complaints, except as documented Genitourinary Genitourinary: Reports system reviewed and no additional complaints, except as documented Musculoskeletal Musculoskeletal: Reports system reviewed and no additional complaints, except as documented, Reports abnormal gait and Reports numbness Neurologic Neurologic: Reports system reviewed and no additional complaints, except as documented, Reports abnormal gait, Reports confusion and Reports numbness Psychiatric Psychiatric: Reports system reviewed and no additional complaints, except as documented and Reports confusion Exam Vital Signs (past 8 hours): - 11/22/23 14:31 11/22/23 14:51 11/22/23 14:55 Pulse Rate 142 H 122 H Respiratory Rate 14 10 L Blood Pressure 139/91 H 130/68 Pulse Oximetry 100 98 Oxygen Delivery Method Room Air 11/22/23 14:55 11/22/23 15:00 11/22/23 15:00 Pulse Rate 148 H 143 H Respiratory Rate 15 15 Blood Pressure 97/67 Pulse Oximetry 98 99 Oxygen Delivery Method 11/22/23 15:14 11/22/23 15:14 11/22/23 15:15 Pulse Rate 150 H Respiratory Rate 15 Blood Pressure 106/84 120/73 Pulse Oximetry 98 Oxygen Delivery Method 11/22/23 15:15 11/22/23 15:30 11/22/23 15:30 Pulse Rate 134 H 147 H Respiratory Rate 14 15 Blood Pressure 115/63 Pulse Oximetry 98 98 Oxygen Delivery Method 11/22/23 15:45 11/22/23 15:45 11/22/23 15:55 Pulse Rate 152 H 140 H Respiratory Rate 16 Blood Pressure 130/70 130/70 Pulse Oximetry 98 Oxygen Delivery Method 11/22/23 16:00 11/22/23 16:00 11/22/23 16:30 Pulse Rate 99 H 123 H Respiratory Rate 15 14 Blood Pressure 108/66 Pulse Oximetry 98 97 Oxygen Delivery Method 11/22/23 17:00 11/22/23 17:19 11/22/23 17:30 Pulse Rate 135 H 146 H 115 H Respiratory Rate 13 20 Blood Pressure 108/66 Pulse Oximetry 97 97 Oxygen Delivery Method 11/22/23 17:57 11/22/23 17:57 11/22/23 18:00 Pulse Rate 135 H Respiratory Rate 17 Blood Pressure 133/73 126/77 Pulse Oximetry 93 Oxygen Delivery Method 11/22/23 18:00 11/22/23 18:08 11/22/23 18:15 Pulse Rate 130 H 130 H Respiratory Rate 12 Blood Pressure 126/77 128/69 Pulse Oximetry 95 Oxygen Delivery Method 11/22/23 18:15 11/22/23 18:30 11/22/23 18:31 Pulse Rate 112 H 148 H Respiratory Rate 15 15 Blood Pressure 125/79 Pulse Oximetry 95 95 Oxygen Delivery Method 11/22/23 18:31 11/22/23 18:45 11/22/23 18:45 Pulse Rate 105 H 121 H Respiratory Rate 15 17 Blood Pressure 121/72 Pulse Oximetry 95 94 Oxygen Delivery Method 11/22/23 18:59 11/22/23 19:00 11/22/23 19:00 Pulse Rate 127 H 124 H Respiratory Rate 16 16 Blood Pressure 124/62 Pulse Oximetry 95 95 Oxygen Delivery Method 11/22/23 19:11 11/22/23 19:15 11/22/23 19:15 Pulse Rate 117 H 148 H Respiratory Rate 16 Blood Pressure 124/62 117/70 Pulse Oximetry 94 Oxygen Delivery Method 11/22/23 19:30 11/22/23 19:35 11/22/23 19:40 Pulse Rate 131 H 136 H 135 H Respiratory Rate 19 19 12 Blood Pressure Pulse Oximetry 96 96 96 Oxygen Delivery Method 11/22/23 19:45 11/22/23 19:50 11/22/23 19:52 Pulse Rate 146 H 139 H Respiratory Rate 28 H 26 H Blood Pressure 117/70 Pulse Oximetry 92 Oxygen Delivery Method 11/22/23 19:55 11/22/23 20:00 11/22/23 20:05 Pulse Rate 131 H 132 H 118 H Respiratory Rate 28 H 25 H 23 Blood Pressure Pulse Oximetry 98 97 98 Oxygen Delivery Method 11/22/23 20:10 11/22/23 20:15 11/22/23 20:20 Pulse Rate 128 H 113 H 109 H Respiratory Rate 25 H 21 22 Blood Pressure Pulse Oximetry 98 98 97 Oxygen Delivery Method Room Air 11/22/23 20:24 11/22/23 20:24 11/22/23 20:25 Pulse Rate 107 H 100 H Respiratory Rate 27 H 22 Blood Pressure 140/74 Pulse Oximetry 96 96 Oxygen Delivery Method 11/22/23 20:30 11/22/23 20:30 11/22/23 20:35 Pulse Rate 90 110 H Respiratory Rate 25 H 22 Blood Pressure 123/81 Pulse Oximetry 97 96 Oxygen Delivery Method 11/22/23 20:40 11/22/23 21:00 Pulse Rate 124 H Respiratory Rate 36 H Blood Pressure Pulse Oximetry Oxygen Delivery Method Room Air Oxygen Delivery Method Room Air Const General: cooperative, comfortable and well developed Orientation: alert and oriented x3 HENMT Head: normal to inspection, normocephalic and atraumatic Face and sinus: normal facial exam Mouth: oral mucosae normal and moist mucous membranes Throat: posterior oropharynx normal Eyes General: appearance normal, both eyes and all related structures Pupils: PERRL EOM: EOM intact bilaterally Neck Neck: normal visual inspection and full ROM Chest Chest: normal inspection of the chest Resp Effort & Inspection: normal respiratory effort and able to speak in complete sentences Auscultation: clear to auscultation bilaterally Cardio Palpation: normal PMI Rate: regular rate Rhythm: regular rhythm Heart Sounds: S1 normal and S2 normal GI Inspection: normal to inspection Palpation: soft and no hepatosplenomegaly Auscultation: normal bowel sounds Skin General: no rashes or lesions noted Lesions: no lesions Rashes: no rashes Trauma: no lacerations or abrasions Neuro General: patient alert, patient awake, patient oriented x3 and no focal motor deficits Cranial Nerves: CN's II-XI intact bilaterally Cognition: normal cognition Speech: speech normal Gait: normal gait Motor: muscle tone normal throughout Sensory Exam: no sensory deficits noted Extrem General: full ROM and no calf tenderness Psych Appearance: grossly normal Mental Status: mental status grossly normal Speech and Movement: speech and movement normal Objective Labs 11/22/23 14:34 11/22/23 14:34 Labs: Laboratory Results - last 24 hr 11/22/23 11/22/23 14:34 14:34 WBC 10.3 RBC 4.21 L Hgb 13.3 L Hct 39.6 L MCV 93.9 MCH 31.6 MCHC 33.6 RDW 13.2 Plt Count 116 L Neut % (Auto) 88.7 H Lymph % (Auto) 6.9 L [place] % (Auto) 4.0 Eos % (Auto) 0.3 L Baso % (Auto) 0.1 Neut # (Auto) 9100 H Lymph # (Auto) 700 L [place] # (Auto) 400 Eos # (Auto) 0 Baso # (Auto) 0 PT 10.8 INR 0.9 APTT 29 Sodium 139 Potassium 5.4 H Chloride 113 H Carbon Dioxide 17 L BUN 29 H Creatinine 1.39 H Estimated GFR 56 L BUN/Creatinine Ratio 20.9 Glucose 142 H Lactate 2.0 Calcium 8.5 Magnesium 1.9 Total Bilirubin 1.0 AST 47 ALT 23 Alkaline Phosphatase 24 L Total Creatine Kinase 169 Troponin I 0.016 NT-Pro-B Natriuret Pep 38 37 Total Protein 7.1 Albumin 4.4 Globulin 2.7 Albumin/Globulin Ratio 1.6 Lipase 115 Assessment & Plan Assessment & Plan narrative: A. Fib with RVR. Patient has history of previous atrial fibrillation per patient documentation. -Admitted patient in PCU -if rate control is achieved will start on scheduled metoprolol -start diltiazem drip. Closely monitor blood pressure and heart rate. Hold if the systolic blood pressures < 90 or heart rate is < 60. --if the patient doesn't respond to Cardizem/digoxin will consider intravenously amiodarone -Monitor patient's electrolyte closely. Keep K > 4, Mg > 2 -Check patient's cardiac enzymes,TSH restart rosuvastatin levels -Check echocardiogram -Continue with Eliquis started from the ED. -consider cardiology consult in the morning Hyperlipidemia. Restart fenofibrate and rosuvastatin CAD. Restart aspirin, statins Hypertension. Restart lisinopril Chronic colitis. Restart sulfasalazine Time-Based Coding :: [TOTAL MINUTES] spent with patient and on the chart (including review of chart, obtaining history, exam, reviewing outside data, placing orders, documenting exam and treatment plan, and counseling patient) on [DATE]. Quality VTE Deep Vein Thrombosis/Pulmonary Embolism Present on Admission: No MIPS - Admit I confirm the patient?s Advance Care Plan is present, Code status is documented, Surrogate decision maker is in patient?s record [If Yes, STOP here]: Yes MIPS - Meds 'Current medications' to include all prescriptions, [id number] products, herbals, cannabis/cannabidiol products, and vitamin/mineral/dietary (nutritional) supplements. I have utilized all available resources to obtain, update, or review the patient?s current medications. [If Yes, STOP here]: Yes
[2023-11-22 22:37] LABS: Thyroid Stimulating Hormone 1.43 uIU/mL (0.47-4.68)
[2023-11-23] VITALS (24 sets, daily range): BP systolic 101–145; BP diastolic 60–88; PULSE 65–99; RESP 12–21; TEMP 36.2–36.5; O2SAT 91–99
[2023-11-23 06:26] LABS: Alanine Aminotransferase 19 IU/L (<50); Albumin 3.4 g/dL (3.5-5.0); Albumin Globulin Ratio 1.4 (1.0-2.8); Alkaline Phosphatase 35 U/L (38-126); Aspartate Aminotransferase 25 IU/L (17-59); BUN Creatinine Ratio 18.9 (6-22); Bilirubin Total 0.4 mg/dL (0.2-1.3); Blood Urea Nitrogen 25 mg/dL (9-20); Carbon Dioxide 21 mmol/L (22-32); Chloride 115 mmol/L (98-107); Estimated Glomerular Filt Rate 60 mL/min (>60); Globulin 2.4 g/dL (1.7-4.1); Glucose 99 mg/dL (80-110); HEMOLYSIS < 15 (0-50); Potassium 4.3 mmol/L (3.4-5.1); Sodium 140 mmol/L (137-145); Total Protein 5.8 g/dL (6.3-8.2)
[2023-11-23 07:02] LABS: Troponin I 0.418 ng/mL (0.01-0.034)
[2023-11-23] MEDS: SODIUM CHLORIDE 0.9% 1,000 ML 100 ML IV (07:23)
--- NOTE | 2023-11-23 07:24 | EKG_ITS ---
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
--- NOTE | 2023-11-23 07:28 | PC.NURSE ---
pt admitted to ICU at 2058, awake and alert, in a-fib w/ HR 120s-140s; Diltiazem 15mg/hr; pt denies chest pain or shortness of breath; denies dizziness on arrival to ICU; Diltiazem was titrated down to 5mg/hr for HR 60-80s, and pt converted to NSR at 0538; troponin this am 0.[address] Ramirez notified; EKG being done and pt continues to deny SOB, CP, or dizziness
[2023-11-23] MEDS: DILTIAZEM 125 MG/125 ML PIGGYBACK IV (07:38)
--- NOTE | 2023-11-23 08:00 | P.PN_ITS ---
Subjective Subjective Interval history: From night doctor: 63 years old male with history of hypertension, hyperlipidemia, remote history of atrial fibrillation in 2009, CKD, chronic colitis presented to the ER with dizziness since this morning. The patient tried vertigo medication but it did not help him. Denies any chest pain, palpitations, nausea, vomiting, abdominal pain, diarrhea, dysuria, neurodeficits, headache or blurry vision. In the ER laboratory showed BNP 690, potassium 5.4, creatinine 1.39, glucose 143, LFT normal, lipase 115. EKG showed atrial fibrillation with a rate of 129. CT angiogram of the head was unremarkable. The patient was started on Cardizem drip, Eliquis. Cardiology was consulted and recommended adding digoxin IV. Exam Vital Signs (past 8 hours): - 11/23/23 00:05 11/23/23 00:10 11/23/23 00:15 Temperature Pulse Rate 73 74 80 Respiratory Rate 16 17 17 Blood Pressure Pulse Oximetry 94 94 94 Oxygen Flow Rate 11/23/23 00:20 11/23/23 00:25 11/23/23 00:30 Temperature Pulse Rate 69 70 72 Respiratory Rate 16 18 18 Blood Pressure Pulse Oximetry 94 94 94 Oxygen Flow Rate 11/23/23 00:35 11/23/23 00:40 11/23/23 00:45 Temperature Pulse Rate 75 69 74 Respiratory Rate 19 15 17 Blood Pressure Pulse Oximetry 94 96 95 Oxygen Flow Rate 11/23/23 00:50 11/23/23 00:55 11/23/23 01:00 Temperature Pulse Rate 70 68 Respiratory Rate 17 16 Blood Pressure 108/62 Pulse Oximetry 94 94 Oxygen Flow Rate 11/23/23 01:00 11/23/23 02:00 11/23/23 02:00 Temperature Pulse Rate 71 65 Respiratory Rate 17 17 Blood Pressure 101/60 Pulse Oximetry 94 94 Oxygen Flow Rate 11/23/23 03:00 11/23/23 03:00 11/23/23 04:00 Temperature Pulse Rate 74 Respiratory Rate 12 Blood Pressure 114/65 109/64 Pulse Oximetry 95 Oxygen Flow Rate 11/23/23 04:00 11/23/23 05:00 11/23/23 05:00 Temperature Pulse Rate 75 99 H Respiratory Rate 15 21 Blood Pressure 116/78 Pulse Oximetry 95 91 Oxygen Flow Rate 11/23/23 06:00 11/23/23 06:00 11/23/23 06:00 Temperature 97.7 F Pulse Rate 70 66 Respiratory Rate 16 16 Blood Pressure 119/68 119/68 Pulse Oximetry 96 Oxygen Flow Rate 0 Oxygen Delivery Method Room Air Oxygen Flow Rate 0 Narrative Exam Narrative: NAD, alert and oriented. Fluent speech. Lungs are clear, normal rate and effort. Heart is irregular, no murmur gallop or rub. Abdomen is soft, non distended. Extremities are free of edema. Objective ECG Impression: AF + RVR Labs 11/22/23 14:34 11/23/23 05:59 Labs: Laboratory Results - last 24 hr 11/22/23 11/22/23 11/23/23 14:34 14:34 05:59 WBC 10.3 RBC 4.21 L Hgb 13.3 L Hct 39.6 L MCV 93.9 MCH 31.6 MCHC 33.6 RDW 13.2 Plt Count 116 L Neut % (Auto) 88.7 H Lymph % (Auto) 6.9 L [place] % (Auto) 4.0 Eos % (Auto) 0.3 L Baso % (Auto) 0.1 Neut # (Auto) 9100 H Lymph # (Auto) 700 L [place] # (Auto) 400 Eos # (Auto) 0 Baso # (Auto) 0 PT 10.8 INR 0.9 APTT 29 Sodium 139 140 Potassium 5.4 H 4.3 Chloride 113 H 115 H Carbon Dioxide 17 L 21 L BUN 29 H 25 H Creatinine 1.39 H 1.32 H Estimated GFR 56 L 60 BUN/Creatinine Ratio 20.9 18.9 Glucose 142 H 99 Lactate 2.0 Calcium 8.5 9.0 Magnesium 1.9 Total Bilirubin 1.0 0.4 AST 47 25 ALT 23 19 Alkaline Phosphatase 24 L 35 L Total Creatine Kinase 169 Troponin I 0.016 0.418 H* NT-Pro-B Natriuret Pep 38 37 Total Protein 7.1 5.8 L Albumin 4.4 3.4 L Globulin 2.7 2.4 Albumin/Globulin Ratio 1.6 1.4 Lipase 115 TSH 1.43 [facility] Medical History Hypertriglyceridemia without hypercholesterolemia Chronic kidney disease, stage 3a Chronic colitis Ear foreign body Vision disorder Rosacea (~2007) Chicken pox Tinnitus (~1999) History of recurrent ear infection Skin cancer (~2002) Erectile dysfunction History of colon polyps HTN (hypertension) (~2000) History of atrial fibrillation (~2009) Surgical History History of skin surgery Family History Father Diabetes mellitus Stroke History of heart disease Hypertension Mother History of heart disease Brother Mental health problem Brother Suicide Mental health problem Sister History of heart disease Sister Multiple sclerosis Sister History of heart disease Social History household members: spouse Smoking Status: Never smoker alcohol intake: current Assessment & Plan Assessment & Plan narrative: 1. A. Fib with RVR, present on admission and active. -Patient has history of previous atrial fibrillation per patient documentation. -Admitted patient in PCU -if rate control is achieved will start on scheduled metoprolol -start diltiazem drip. Closely monitor blood pressure and heart rate. Hold if the systolic blood pressures < 90 or heart rate is < 60. --if the patient doesn't respond to Cardizem/digoxin will consider intravenously amiodarone -Monitor patient's electrolyte closely. Keep K > 4, Mg > 2 -Check patient's cardiac enzymes,TSH restart rosuvastatin levels -Check echocardiogram -Continue with Eliquis started from the ED. -consider cardiology consult in the morning 2. PIERCE, present on admission and active. -IV fluids and monitor 3. Hyperkalemia, present on admission and active. -IV fluids and monitor 4. Hyperlipidemia, present on admission and active. -Restart fenofibrate and rosuvastatin 5. CAD, present on admission and active. - Restart aspirin, statins 6. Hypertension, present on admission and active. -Restart lisinopril 7. Chronic colitis, present on admission and active. -Restart sulfasalazine Time-Based Coding :: 30 min spent with patient and on the chart (including review of chart, obtaining history, exam, reviewing outside data, placing orders, documenting exam and treatment plan, and counseling patient) on 11/22. Quality VTE Deep Vein Thrombosis/Pulmonary Embolism Present on Admission: No
[2023-11-23] MEDS: APIXABAN 5 MG TABLET PO (08:35)
[2023-11-23] MEDS: METOPROLOL IR 25 MG TABLET PO ×2 (08:35→12:04)
[2023-11-23] MEDS: ASPIRIN 81 MG CHEW TAB PO (08:35)
[2023-11-23] MEDS: TRIAMTERENE/HCTZ 37.5/25 CAPSULE PO (08:35)
[2023-11-23] MEDS: FENOFIBRATE, MICRONIZED 67 MG CAPSULE PO (08:35)
[2023-11-23 13:07] LABS: Troponin I 0.262 ng/mL (0.01-0.034)
--- NOTE | 2023-11-23 16:10 | PM.DS.1 ---
History of Present Illness History of Present Illness Chief complaint: vertigo Narrative: From H&P: 63 years old male with history of hypertension, hyperlipidemia, remote history of atrial fibrillation in 2009, CKD, chronic colitis presented to the ER with dizziness since this morning. The patient tried vertigo medication but it did not help him. Denies any chest pain, palpitations, nausea, vomiting, abdominal pain, diarrhea, dysuria, neurodeficits, headache or blurry vision. In the ER laboratory showed BNP 690, potassium 5.4, creatinine 139, glucose 143, LFT normal, lipase 115. EKG showed atrial fibrillation with a rate of 129. CT angiogram of the head was unremarkable. The patient was started on Cardizem drip, Eliquis. Cardiology was consulted and recommended adding digoxin IV. Discharge Providers Provider Date of admission: 11/22/23 19:40 Discharge Date: 11/23/23 Primary care physician: Doctor Navdeep MD Consults: None. Discharge provider: Jerry Ramirez MD Summary Hospital Course Discharge Diagnosis: 1. A. Fib with RVR. Present on admission and resolved. -Patient has history of previous atrial fibrillation per patient documentation. -Admitted patient in PCU -Continue with Eliquis started from the ED. 2. NSTEMI, present on admission and improved. -on Eliquis, given beta blockade. On statin. He was also on an ALLISON inhibitor. 3. Hyperlipidemia, present on admission and improved. -Restart fenofibrate and rosuvastatin 4. CAD, present on admission and improved. -Restart aspirin, statins 5. Hypertension, present on admission and improved. -Restart lisinopril 6. Chronic colitis, present on admission and improved. -Restart sulfasalazine Hospital Course: He was admitted with atrial fibrillation and RVR and rate controlled with diltiazem drip in 1 dose of IV digoxin. He cardioverted in the morning to sinus rhythm at 0 500. He was started on metoprolol orally and he is chronically on aspirin and rosuvastatin as well as fenofibrate. His troponin did elevate to 0.4 and then came down to 0.2. He had no chest pain or ischemic changes on ECG including a ECG at 7:30 a.m. in the morning. An echo was reassuring systolic dysfunction and no wall motion abnormalities. The patient was quite motivated to discharge from the hospital and ultimately it was felt that place him on medical therapy for cardio protection and close follow up with an outpatient stress test for risk stratification would be a reasonable course. The patient will have of metopic edit she was chronic aspirin, rosuvastatin, and fenofibrate. He was also on chronic lisinopril. He will follow up with PCP outpatient stress test. He will also likely have a referral to Cardiology and could benefit from a Zio patch as it is unclear what the frequency is of his AF really is. The patient will be placed on apixaban b.i.d. at this 0.4 thromboembolic prevention. He has been taking aspirin 325 daily chronically since seeing a business services director for a similar episode in 2009. This dose will not be adjusted until follow up. Status at Discharge Cognitive/behavioral status at discharge: oriented Functional status at discharge: independent ambulation Overall status at discharge: patient is back to baseline Time Spent with Patient Time spent: Greater than 30 minutes Exam Vital Signs (past 8 hours): - 11/23/23 09:08 11/23/23 09:09 11/23/23 09:09 Temperature Pulse Rate 79 77 Respiratory Rate 20 Blood Pressure 130/73 Pulse Oximetry Oxygen Delivery Method Oxygen Flow Rate 11/23/23 13:00 11/23/23 13:14 11/23/23 13:59 Temperature 97.2 F L Pulse Rate 74 Respiratory Rate 18 Blood Pressure 145/88 H Pulse Oximetry 99 Oxygen Delivery Method Room Air Oxygen Flow Rate 0 Oxygen Delivery Method Room Air Oxygen Flow Rate 0 Narrative Exam Narrative: NAD, alert and oriented. Fluent speech. Lungs are clear, normal rate and effort. Heart is regular, no murmur gallop or rub. Abdomen is soft, non distended. Extremities are free of edema. Objective ECG Impression: 1 st: Atrial fibrillation with rapid ventricular response Nonspecific ST and T wave abnormality. HR 135. 2 nd NSR Imaging Chest x-ray: Radiologist's impression: No acute pulmonary process. Echo: Radiologist's impression: The ejection fraction is estimated to be 60-65%. Diastolic parameters suggest probable normal left ventricular diastolic function and normal filling pressures. The right ventricle is normal in size and function. Pulmonary artery pressures cannot be estimated because of the lack of a measurable TR jet velocity. The IVC is of normal diameter and collapses greater than 50% with a sniff. This suggests a low right atrial pressure of 3 mm Hg. No significant valvular abnormality. CT angio head and neck:: Radiologist's impression: No significant intracranial arterial abnormality is seen. No significant abnormality is seen within the arteries of the neck. Labs 11/22/23 14:34 11/23/23 05:59 Labs: Laboratory Results - last 24 hr 11/22/23 11/23/23 11/23/23 14:34 05:59 12:15 Sodium 140 Potassium 4.3 Chloride 115 H Carbon Dioxide 21 L BUN 25 H Creatinine 1.32 H Estimated GFR 60 BUN/Creatinine Ratio 18.9 Glucose 99 Lactate 2.0 Calcium 9.0 Total Bilirubin 0.4 AST 25 ALT 19 Alkaline Phosphatase 35 L Troponin I 0.418 H* 0.262 H* NT-Pro-B Natriuret Pep 37 Total Protein 5.8 L Albumin 3.4 L Globulin 2.4 Albumin/Globulin Ratio 1.4 TSH 1.43 PFSH Medical History Hypertriglyceridemia without hypercholesterolemia Chronic kidney disease, stage 3a Chronic colitis Ear foreign body Vision disorder Rosacea (~2007) Chicken pox Tinnitus (~1999) History of recurrent ear infection Skin cancer (~2002) Erectile dysfunction History of colon polyps HTN (hypertension) (~2000) History of atrial fibrillation (~2009) Surgical History History of skin surgery Family History Father Diabetes mellitus Stroke History of heart disease Hypertension Mother History of heart disease Brother Mental health problem Brother Suicide Mental health problem Sister History of heart disease Sister Multiple sclerosis Sister History of heart disease Social History household members: spouse Smoking Status: Never smoker alcohol intake: current Discharge Assessment & Plan Assessment and Plan Assessment: 1. A. Fib with RVR. Present on admission and resolved. -Patient has history of previous atrial fibrillation per patient documentation. -Admitted patient in PCU -Continue with Eliquis started from the ED. 2. NSTEMI, present on admission and improved. -on Eliquis, given beta blockade. On statin. He was also on an ALLISON inhibitor. 3. Hyperlipidemia, present on admission and improved. -Restart fenofibrate and rosuvastatin 4. CAD, present on admission and improved. -Restart aspirin, statins 5. Hypertension, present on admission and improved. -Restart lisinopril 6. Chronic colitis, present on admission and improved. -Restart sulfasalazine Plan of Treatment: Discharge on chronic medications and additionally metoprolol 12.5 b.i.d. and apixaban 2.5 b.i.d. with recommendations for close follow up, outpatient stress test for risk stratification, and consider cardiology referral and Александр rodriguez for further input on his cardiac medications and to define frequency of atrial fibrillation and rule out occult asymptomatic atrial fibrillation. Discharge Plan Discharge Plan Patient Disposition: Home Provider Discharge Comment: Stable for discharge on cardioprotective medications with close follow up and an outpatient stress test. Discharge orders & Medications Prescriptions: New Eliquis 5 mg Tablet 5 mg PO BID Qty: 60 1RF metoprolol tartrate 25 mg tablet 12.5 mg PO BID Qty: 60 1RF Continued tadalafil 20 mg tablet See Rx Instructions .ROUTE .COMPLEX Qty: 18 7RF Dose Instruction: TAKE INSTRUCTED BY YOUR PRESCRIBER Rx Instructions: TAKE INSTRUCTED BY YOUR PRESCRIBER minocycline 50 mg tablet 50 mg PO DAILY Qty: 90 3RF sulfasalazine 500 mg tablet See Rx Instructions .ROUTE .COMPLEX Qty: 360 3RF Hold Instructions: Supply problem Dose Instruction: take 2 tablet by mouth twice a day with food Rx Instructions: take 2 tablet by mouth twice a day with food fenofibrate 40 mg tablet See Rx Instructions .ROUTE .COMPLEX Qty: 90 0RF Dose Instruction: take 1 tablet by mouth once daily Rx Instructions: take 1 tablet by mouth once daily rosuvastatin 10 mg tablet See Rx Instructions .ROUTE .COMPLEX Qty: 90 3RF Dose Instruction: take 1 tablet by mouth once daily Rx Instructions: take 1 tablet by mouth once daily aspirin 325 mg tablet 325 mg PO DAILY lisinopril 20 mg tablet 20 mg PO DAILY Medication counseling provided by Pharmacist: No Follow up/Referrals: Doctor Sethi MD [Primary Care Provider] - Discharge Health Status Multidrug resistant organism: No MDRO Diet/Activity/Treatments Diet: Low-cholesterol Visit Report/Discharge Packet Instructions: DI for Atrial Fibrillation, DI for Chest Pain Stand Alone Forms: Patient Portal/API Discharge Data Primary Care Provider: Doctor Navdeep Quality VTE Deep Vein Thrombosis/Pulmonary Embolism Present on Admission: No
--- NOTE | 2023-11-23 16:16 | CM.DANOTE ---
Brief DCP Assessment note Pt is a 63yo M here with afib with RVR. PCP none listed payer [facility] and self pay [employer] PERSON reviewed EMR. Per chart/RN report, pt converted to normal rhythm at 0530. Indep in room, eager to dc home. Per provider in morning rounds, echo scheduled for noon. Per chart, pt lives in [place] with spouse Chris and works at [employer]. Indep/active at baseline. Per chart at 1615, pt cleared to dc home. Per RN, no CM needs. P: home with spouse support, no identified barriers to safe dc home identified at this time. close OP f/u recommended. CM team will continue to follow as needed ALFREDA Lima Discharge Planning/Care Management CM Discharge Assessment Start: 11/23/23 16:14 Freq: Status: Active Protocol: Document 11/23/23 16:14 (Rec: 11/23/23 16:16 [id number]) Discharge Planning Assessment Assigned Operations Support Analyst ALFREDA Sewell DPOA/Assigned Designee Name flora Perez Contact Information [phone] Advance Directives? No History Provided By Patient Prior Living Arrangements House Household Members spouse Type of transporation used prior to Drives own vehicle admit Independent with ADL's Yes Is patient alert and oriented? Yes Barriers to Discharge No Discharge Plan Home Referrals Initiated None needed Whiteboard Updated in Patient Room with No name and ext. # of Operations Support Analyst Review Status In Process Please Provide Date Initial DC 11/23/23 Assessment Was Performed Next Review Type Continued Stay Review
== END 2023-11-23 16:18 | disposition home or self-care (01) | DRG 282 ==
LOC: ED 15:10 → AC 19:41 → ICU 21:21
PROVIDERS: Hospitalist; Admitting Provider Internal Medicine; Emergency Provider Emergency Medicine; Referring Provider Emergency Medicine; Visit Provider Internal Medicine
DX: I48.91 Unspecified atrial fibrillation (principal); I21.4 Non-ST elevation (NSTEMI) myocardial infarction; E78.5 Hyperlipidemia, unspecified; I25.10 Atherosclerotic heart disease of native coronary artery without angina pectoris; I10 Essential (primary) hypertension; K52.89 Other specified noninfective gastroenteritis and colitis; N52.9 Male erectile dysfunction, unspecified
CPT/HCPCS: 36415; 70496; 70498; 71045; 80053; 82550; 83605; 83690; 83735; 83880; 84443; 84484; 85025; 85610; 85730; 93005; 93306; 96365; 96375; 96376; 99285; J1160; Q9967